=== PATIENT | male | born 1975 | race Two or more races ===

== ENCOUNTER 2017-03-12 20:40 | Emergency (ER) | payer BC ==
[2017-03-12 20:51] VITALS: BP 138/90
[2017-03-12] MEDS ORDERED: Sodium Chloride 0.9% 1,000 ML IV ONE (22:05)
[2017-03-12] MEDS ORDERED: Ondansetron 4 MG/2 ML SDV IVPUSH ONE (22:05)
[2017-03-12] MEDS ORDERED: Loperamide 2 MG Cap PO STA (22:05)
--- NOTE | 2017-03-12 22:33 | EDM.PDOC ---
ED HPI GENERAL MEDICAL PROBLEM - General Chief Complaint: Gastrointestinal Problem Stated Complaint: ABDOMINAL PAIN Time Seen by Provider: 03/12/17 21:45 Source of Information: Reports: Patient, Family (, son), RN Notes Reviewed History Limitations: Reports: No Limitations - History of Present Illness INITIAL COMMENTS - FREE TEXT/NARRATIVE: The patient states that he was in [place] from 03/02/2017 through 03/06/2017. He states that he developed heartburn on 03/02/2017, nausea on or about 03/03/2017 or 03/04/2017, then watery, non-bloody diarrhea 2 days ago, 03/10/2017. He has not had a fever, urinary symptoms, or cough. He does not recall eating any spoiled food in [place]. None of his family members or coworkers are similarly ill. No recent antibiotics. No prior similar symptoms. The patient states that he has not tried any edjw-[id number] or home remedies for his symptoms. He has not sought medical evaluation for these symptoms. The patient does not have a PCP. - Related Data Allergies Allergy/AdvReac Type Severity Reaction Status Date / Time No Known Allergies Allergy Verified 03/12/17 20:48 Home Meds: Home Meds Montelukast [Singulair] 10 mg PO ONCALL PRN 03/12/17 [History] Ondansetron [Zofran ODT] 4 mg PO Q8H PRN #10 tab.dis 03/13/17 [Rx] Past Medical History HEENT History: Reports: Allergic Rhinitis Social & Family History - Tobacco Use Smoking Status *Q: Current Every Day Smoker Years of Tobacco use: 30 Packs/Tins Daily: 0.5 - Alcohol Use Alcohol Use History: Yes Days Per Week of Alcohol Use: 7 Number of Drinks Per Day: 2 Total Drinks Per Week: 14 Alcohol Use Frequency: Daily - Recreational Drug Use Recreational Drug Use: No - Living Situation & Occupation Living situation: Reports: , with Spouse, with Family (1 son) 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) ED ROS GENERAL - Review of Systems Review Of Systems: See Below Constitutional: Reports: No Symptoms HEENT: Reports: No Symptoms Respiratory: Reports: No Symptoms Cardiovascular: Reports: No Symptoms Endocrine: Reports: No Symptoms GI/Abdominal: Reports: No Symptoms : Reports: No Symptoms Musculoskeletal: Reports: No Symptoms Skin: Reports: No Symptoms Neurological: Reports: No Symptoms Psychiatric: Reports: No Symptoms Hematologic/Lymphatic: Reports: No Symptoms Immunologic: Reports: No Symptoms ED EXAM, GI/ABD - Physical Exam Exam: See Below Exam Limited By: No Limitations General Appearance: Alert, WD/WN, No Apparent Distress Eyes: Bilateral: Normal Appearance, EOMI Ears: Normal External Exam, Hearing Grossly Normal Nose: Normal Inspection, No Blood Throat/Mouth: Normal Inspection, Normal Lips, Normal Voice, No Airway Compromise Head: Atraumatic, Normocephalic Neck: Normal Inspection, Full Range of Motion Respiratory/Chest: No Respiratory Distress, Lungs Clear, Normal Breath Sounds, No Accessory Muscle Use Cardiovascular: Normal Peripheral Pulses, Regular Rate, Rhythm, No Gallop, No JVD, No Murmur, No Rub GI/Abdominal Exam: Normal Bowel Sounds, Soft, Non-Tender, No Organomegaly, No Distention, No Abnormal Bruit, No Mass, Pelvis Stable (Male) Exam: Deferred Rectal (Males) Exam: Deferred Back Exam: Normal Inspection, Full Range of Motion. No: CVA Tenderness (L), CVA Tenderness (R) Extremities: Normal Inspection, Normal Range of Motion, No Pedal Edema, Normal Capillary Refill Neurological: Alert, Oriented, Normal Cognition, No Motor/Sensory Deficits Psychiatric: Normal Affect Skin Exam: Warm, Dry, Intact, Normal Color, No Rash Course - Vital Signs Last Recorded V/S: Last Vital Signs Temp 36.1 C 03/12/17 20:48 Pulse 71 03/12/17 20:48 Resp 16 03/12/17 20:48 BP 138/90 03/12/17 20:48 Pulse Ox 100 03/12/17 20:48 Orthostatic Blood Pressure [ 128/88 Standing] Orthostatic Blood Pressure [ 131/96 Sitting] Orthostatic Blood Pressure [ 135/78 Supine] - Orders/Labs/Meds Orders: Active Orders 24 hr Category Date Time Status Orthostatic Vital Signs [RC] STAT Care 03/12/17 21:55 Active CULTURE STOOL + SHIGATOX [RM] Stat Lab 03/12/17 21:59 Uncollected NOROVIRUS GROUP 1 & 2 RT-PCR Stat Lab 03/12/17 22:00 Ordered ROTAVIRUS DIRECT ANTIGEN STOOL [OP] Stat Lab 03/12/17 21:59 Uncollected UA W/MICROSCOPIC [URIN] Stat Lab 03/12/17 21:55 Uncollected WBC, STOOL [OP] Stat Lab 03/12/17 21:59 Uncollected Labs: Laboratory Tests 03/12/17 03/12/17 Range/Units 22:10 22:10 WBC 9.65 H (4.23-9.07) K/mm3 RBC 5.23 (4.63-6.08) M/mm3 Hgb 15.0 (13.7-17.5) gm/L Hct 44.3 (40.1-51.0) % MCV 84.7 (79.0-92.2) fl MCH 28.7 (25.7-32.2) pg MCHC 33.9 (32.2-35.5) g/dl RDW Std Deviation 41.6 (35.1-43.9) fL Plt Count 245 (163-337) K/mm3 MPV 10.6 (9.4-12.3) fl Neutrophils % (Manual) 44 (40-60) % Band Neutrophils % 1 (0-10) % Lymphocytes % (Manual) 39 (20-40) % Atypical Lymphs % 0 % Monocytes % (Manual) 7 (2-10) % Eosinophils % (Manual) 7 (0.8-7.0) % Basophils % (Manual) 2 H (0.2-1.2) Platelet Estimate Adequate RBC Morph Comment Normal Sodium 142 (136-145) mEq/L Potassium 4.1 (3.5-5.1) mEq/L Chloride 106 (98-107) mEq/L Carbon Dioxide 27 (21-32) mEq/L Anion Gap 13.1 (5-15) BUN 16 (7-18) mg/dL Creatinine 0.9 (0.7-1.3) mg/dL Est Cr Clr Drug Dosing 102.39 mL/min Estimated GFR (MDRD) > 60 (>60) mL/min BUN/Creatinine Ratio 17.8 (14-18) Glucose 96 (74-106) mg/dL Calcium 9.5 (8.5-10.1) mg/dL Magnesium 2.0 (1.8-2.4) mg/dl Total Bilirubin 0.2 (0.2-1.0) mg/dL AST 25 (15-37) U/L ALT 29 (16-63) U/L Alkaline Phosphatase 68 (46-116) U/L Total Protein 7.4 (6.4-8.2) g/dl Albumin 3.8 (3.4-5.0) g/dl Globulin 3.6 gm/dL Albumin/Globulin Ratio 1.1 (1-2) Meds: Medications Discontinued Medications Generic Name Dose Route Start Last Admin Trade Name Aye PRN Reason Stop Dose Admin Sodium Chloride 1,000 mls @ 999 mls/hr 03/12/17 22:05 03/12/17 22:22 Normal Saline IV 03/12/17 23:05 999 mls/hr ONETIME ONE Administration Loperamide HCl 4 mg 03/12/17 22:05 Imodium PO 03/12/17 22:06 ONETIME STA Ondansetron HCl 4 mg 03/12/17 22:05 03/12/17 22:22 Zofran IVPUSH 03/12/17 22:06 4 mg ONETIME ONE Administration - Re-Assessments/Exams Free Text/Narrative Re-Assessment/Exam: 03/12/17 22:30 The patient is not orthostatic. 03/13/17 00:21 The patient was unable to provide either a urine sample or a stool cell, however , I discussed with him his blood work and orthostatic results. The patient does not appear to have suffered any significant consequences as a result of his nausea or diarrhea. Clinically, the patient has gastroenteritis, likely viral in etiology. I will e-prescribe Zofran, and I am recommending that he take over- the-counter Imodium if his diarrhea continues. Departure - Departure Time of Disposition: 00:22 Disposition: Home, Self-Care 01 Condition: Good Clinical Impression: Gastroenteritis - Discharge Information Referrals: PCP,None [Primary Care Provider] - Forms: ED Department Discharge Additional Instructions: You were seen in the emergency room for heartburn, nausea, and diarrhea. Workup in the ER included blood work and positional blood pressure checks. You were unable to give us a urine sample or stool sample. You were treated with IV fluid, IV Zofran, and oral Imodium. You are MOST LIKELY suffering from a viral gastroenteritis. Unfortunately, there are no medicines we can give to get rid of the virus - it will have to run its course. Dissolve one tablet of the anti-nausea medicine Zofran on your tongue up to every 8 hours, as needed for nausea/vomiting. You may take one tablet (2 mg) of the yxub-jwn-ryuoknz anti-diarrhea medicine Imodium (loperamide) after each loose bowel movement, up to a maximum of 16 mg within a 24-hour period, as directed on the label. Since you were given the loading dose of 4 mg in the ER, you do not need to take another loading dose at home. Stay well hydrated, and eat a bland diet, such as rice, oatmeal, toast, etc. If any other problems, please do not hesitate to return to the ER. - My Orders Last 24 Hours: My Active Orders 03/12/17 21:55 Orthostatic Vital Signs [RC] STAT UA W/MICROSCOPIC [URIN] Stat 03/12/17 21:59 CULTURE STOOL + SHIGATOX [RM] Stat ROTAVIRUS DIRECT ANTIGEN STOOL [OP] Stat WBC, STOOL [OP] Stat 03/12/17 22:00 NOROVIRUS GROUP 1 & 2 RT-PCR Stat - Assessment/Plan Last 24 Hours: My Active Orders 03/12/17 21:55 Orthostatic Vital Signs [RC] STAT UA W/MICROSCOPIC [URIN] Stat 03/12/17 21:59 CULTURE STOOL + SHIGATOX [RM] Stat ROTAVIRUS DIRECT ANTIGEN STOOL [OP] Stat WBC, STOOL [OP] Stat 03/12/17 22:00 NOROVIRUS GROUP 1 & 2 RT-PCR Stat
== END 2017-03-13 00:45 | disposition home or self-care (01) ==
LOC: JD.ED 20:40
DX: K52.9 Noninfective gastroenteritis and colitis, unspecified (principal); F17.210 Nicotine dependence, cigarettes, uncomplicated
CPT/HCPCS: 36415; 80053; 83735; 85025; 96361; 96374; 99284; J2405; J7040; 99283